=== PATIENT | male | born 1990 | race Caucasian/White ===

== ENCOUNTER 2022-01-13 10:51 | Inpatient (IN) | payer OTHER ==
[2022-01-13] MEDS ORDERED: SODIUM CHLORIDE 0.9% 1,000 ML with THIAMINE 100 MG, FOLIC ACID 1 MG IV ONE ×3 (11:27)
[2022-01-13] MEDS ORDERED: LORazepam 2 MG/ML INJ IV PRN ×4 (11:27)
[2022-01-13] MEDS ORDERED: THIAMINE 100 MG/ML 2 ML VIAL IM STA ×2 (11:27→16:06)
[2022-01-13 12:09] LABS: Basophils # (A) 0.1 k/uL (0-0.2); Basophils % (A) 2 %; Eosinophils # (A) 0.3 k/uL (0-0.7); Eosinophils % (A) 6 %; HCT 49.3 % (39.0-53.0); HGB 16.2 gm/dL (13.0-17.5); Lymphocytes # (A) 1.1 k/uL (1.0-4.8); Lymphocytes % (A) 23 %; MCHC 32.8 g/dL (31.0-37.0); MCV 94.5 fL (80.0-100.0); Mean Platelet Volume 10.7; Monocytes # (A) 0.4 k/uL (0-1.0); Monocytes % (A) 7 %; Neutrophils # (A) 2.8 k/uL (1.3-7.7); Neutrophils % (A) 58 %; RBC 5.22 m/uL (4.30-5.90); RDW 13.7 % (11.5-15.5); WBC 4.8 k/uL (3.8-10.6)
[2022-01-13 12:14] LABS: ALT 300 U/L (4-49); AST 404 U/L (17-59); African American GFR (CKD) >90 (>60 ml/min/1.73 sqM); Alkaline Phosphatase 121 U/L (38-126); Amylase 46 U/L (30-110); Anion Gap 19 mmol/L; Blood Urea Nitrogen 9 mg/dL (9-20); Carbon Dioxide 23 mmol/L (22-30); Chloride 102 mmol/L (98-107); Glucose 97 mg/dL (74-99); Lipase 194 U/L (23-300); Magnesium 1.8 mg/dL (1.6-2.3); Non-African American GFR(CKD) >90 (>60 ml/min/1.73 sqM); Phosphorus 4.2 mg/dL (2.5-4.5); Potassium 4.1 mmol/L (3.5-5.1); Sodium 144 mmol/L (137-145); Total Bilirubin 1.9 mg/dL (0.2-1.3); Total Protein 8.1 g/dL (6.3-8.2)
[2022-01-13 12:35] LABS: Alcohol 354 mg/dL
--- NOTE | 2022-01-13 12:40 | XR ---
EXAMINATION TYPE: XR chest 2V DATE OF EXAM: 01/13/2022 COMPARISON: NONE HISTORY: Chest pain. TECHNIQUE: Frontal and lateral views of the chest are obtained. FINDINGS: There is no focal air space opacity, pleural effusion, or pneumothorax seen. The cardiac silhouette size is within normal limits. Slight underlying scoliotic curvature. IMPRESSION: No acute process.
[2022-01-13 12:47] LABS: Platelet Count 87 k/uL (150-450)
--- NOTE | 2022-01-13 12:57 | ED ---
Alcohol HPI - General Chief Complaint: Alcohol Stated Complaint: ETOH withdrawals Time Seen by Provider: 01/13/22 11:26 Source: patient, RN notes reviewed Mode of arrival: ambulatory - History of Present Illness Initial Comments: This is a 31-year-old male who presents to the emergency department for alcohol intoxication and withdrawals. He planned on going to [place] for rehab today, however he was told that his alcohol level was too high and he had come to the emergency department. He has consumed about a half gallon of liquor daily for the last 9 years. He currently notes left sided chest pain, which has been present for the last year. He also notes intermittent hematemesis when he lays on his left side. After he goes through detox, he does still plan to go to [place]. He has never been to rehab before. Last alcoholic drink was this morning, unsure how much he consumed. MD Complaint: alcohol withdrawal, desires rehab Previous Visits for Alcohol Intoxication?: No Recent Trauma: No Chronic Alcohol Use: Yes - Related Data Allergies Allergy/AdvReac Type Severity Reaction Status Date / Time shellfish derived [Shellfish] Allergy Anaphylaxis Verified 01/13/22 11:14 Review of Systems ROS Statement: Those systems with pertinent positive or pertinent negative responses have been documented in the HPI. ROS Other: All systems not noted in ROS Statement are negative. Constitutional: Denies: fever, chills ENT: Denies: ear pain, throat pain Respiratory: Denies: cough, dyspnea Cardiovascular: Reports: chest pain. Denies: palpitations Gastrointestinal: Reports: abdominal pain, hematemesis. Denies: nausea, vo miting, diarrhea Genitourinary: Denies: urgency, dysuria Musculoskeletal: Denies: back pain Skin: Denies: rash Neurological: Denies: headache Past Medical History Past Medical History: No Reported History Additional Past Medical History / Comment(s): neuropathy, scoliosis. History of Any Multi-Drug Resistant Organisms: None Reported Additional Past Surgical History / Comment(s): spinal cord injury at 17. Past Psychological History: No Psychological Hx Reported Smoking Status: Current every day smoker Past Alcohol Use History: Abuse, Daily Past Drug Use History: None Reported General Exam Limitations: no limitations General appearance: alert, appears intoxicated Head exam: Present: atraumatic, normocephalic, normal inspection Respiratory exam: Present: normal lung sounds bilaterally. Absent: respiratory distress, wheezes, rales, rhonchi, stridor Cardiovascular Exam: Present: regular rate, normal rhythm, normal heart sounds. Absent: systolic murmur, diastolic murmur, rubs, gallop, clicks GI/Abdominal exam: Present: soft, normal bowel sounds. Absent: distended, tenderness, guarding, rebound, rigid Neurological exam: Present: alert Psychiatric exam: Present: normal affect, normal mood Skin exam: Present: warm, dry, intact, normal color. Absent: rash Course Vital Signs 01/13/22 01/13/22 11:09 13:26 Temperature 98 F Pulse Rate 104 H 85 Respiratory 18 18 Rate Blood Pressure 136/86 125/80 O2 Sat by Pulse 95 97 Oximetry Procedures - [place] Protocol (Time Out) Nurse: Shawna Guardado Medical Decision Making - Medical Decision Making This is a 31-year-old male who presents to the emergency department for alcohol intoxication. EtOH 354, patient will be sober at 1:30 AM tomorrow. Lactic acid elevated at 2.4. AST and ALTs elevated, with no previous values for comparison. Banana bag administered. Chest x-ray obtained given the patient's complaint of chest pain, no irregularities were identified. EKG also had no acute changes. Given his EtOH level, patient will be admitted. WA protocol in place. This case was discussed in detail with the attending ED physician. Presentation, findings, and treatment plan discussed in detail as well. - Lab Data Result diagrams: 01/13/22 11:32 01/13/22 11:32 Lab Results 01/13/22 01/13/22 01/13/22 Range/Units 11:32 11:32 11:43 WBC 4.8 (3.8-10.6) k/uL RBC 5.22 (4.30-5.90) m/uL Hgb 16.2 (13.0-17.5) gm/dL Hct 49.3 (39.0-53.0) % MCV 94.5 (80.0-100.0) fL MCH 31.0 (25.0-35.0) pg MCHC 32.8 (31.0-37.0) g/dL RDW 13.7 (11.5-15.5) % Plt Count 87 L (150-450) k/uL MPV 10.7 Neutrophils % 58 % Lymphocytes % 23 % Monocytes % 7 % Eosinophils % 6 % Basophils % 2 % Neutrophils # 2.8 (1.3-7.7) k/uL Lymphocytes # 1.1 (1.0-4.8) k/uL Monocytes # 0.4 (0-1.0) k/uL Eosinophils # 0.3 (0-0.7) k/uL Basophils # 0.1 (0-0.2) k/uL Sodium 144 (137-145) mmol/L Potassium 4.1 (3.5-5.1) mmol/L Chloride 102 (98-107) mmol/L Carbon Dioxide 23 (22-30) mmol/L Anion Gap 19 mmol/L BUN 9 (9-20) mg/dL Creatinine 0.70 (0.66-1.25) mg/dL Est GFR (CKD-EPI)AfAm >90 (>60 ml/min/1.73 sqM) Est GFR (CKD-EPI)NonAf >90 (>60 ml/min/1.73 sqM) Glucose 97 (74-99) mg/dL Plasma Lactic Acid Isacc 2.4 H* (0.7-2.0) mmol/L Calcium 9.0 (8.4-10.2) mg/dL Phosphorus 4.2 (2.5-4.5) mg/dL Magnesium 1.8 (1.6-2.3) mg/dL Total Bilirubin 1.9 H (0.2-1.3) mg/dL AST 404 H (17-59) U/L ALT 300 H (4-49) U/L Alkaline Phosphatase 121 (38-126) U/L Total Protein 8.1 (6.3-8.2) g/dL Albumin 5.0 (3.5-5.0) g/dL Amylase 46 (30-110) U/L Lipase 194 (23-300) U/L Serum Alcohol 354 H* mg/dL - EKG Data EKG Comments: Normal sinus rhythm. Ventricular rate 75 bpm, GA interval 157 ms, QRS duration 93 ms, QTC 419 ms. - Radiology Data Radiology results: report reviewed, image reviewed Disposition Clinical Impression: Alcoholic intoxication, Alcohol withdrawal syndrome Disposition: ADMITTED IP TO THIS [facility] Referrals: None,Stated [Primary Care Provider] - 1-2 days
[2022-01-13] MEDS ORDERED: KETOROLAC 15 MG/ML 1 ML VIAL IVP PRN (13:45)
[2022-01-13] MEDS ORDERED: ACETAMINOPHEN TAB 325 MG TAB PO PRN (13:45)
[2022-01-13] MEDS ORDERED: ONDANSETRON 4 MG/2 ML VIAL IVP PRN (13:45)
[2022-01-13] MEDS ORDERED: NALOXONE 0.4 MG/ML 1 ML VIAL IV PRN (13:45)
--- NOTE | 2022-01-13 16:05 | P.HPIM ---
History of Present Illness H&P Date: 01/13/22 Chief Complaint: alcohol intoxication 31-year-old male presents to emergency department with alcohol intoxication. He was planning on going to [place] for rehab today, however he was told that his alcohol level was too high and was directed to the emergency department s aid. He drinks about half a gallon of vodka daily for the last 9 years, his last drink was this morning. He is complaining of a headache, no hallucinations or tremors, he has had seizures in the past related to alcohol withdrawal. He has not exhibited any signs of withdrawal at the moment, but his alcohol level is still significantly elevated. He plans on going through alcohol withdrawal in the hospital and then to [place] for rehab. Review of Systems Constitutional: Reports chronic headaches, Reports malaise, Denies chills, Denies sweats Cardiovascular: Denies chest pain, Denies high blood pressure Respiratory: Denies cough, Denies hemoptysis, Denies pain, Denies wheezing Gastrointestinal: Reports abdominal pain, Reports nausea, Reports vomiting Musculoskeletal: Reports myalgias Neurological: Reports headaches, Reports numbness, Denies ataxia, Denies balance difficulties, Denies head injury, Denies lack of coordination, Denies syncope Psychiatric: Denies disorientation, Denies hallucinations, Denies paranoia, Denies suicidal ideation Past Medical History Past Medical History: No Reported History, Seizure Disorder Additional Past Medical History / Comment(s): neuropathy, scoliosis. History of Any Multi-Drug Resistant Organisms: None Reported Past Surgical History: Back Surgery Additional Past Surgical History / Comment(s): spinal cord injury at 17. Past Psychological History: No Psychological Hx Reported Smoking Status: Current every day smoker Past Alcohol Use History: Abuse, Daily Past Drug Use History: None Reported Medications and Allergies Home Medications Medication Instructions Recorded Confirmed Type Acamprosate Calcium [Campral] 666 mg PO DIRECTED 01/13/22 01/13/22 History Celecoxib [CeleBREX] 100 mg PO BID 01/13/22 01/13/22 History Folic Acid 1 mg PO DIRECTED 01/13/22 01/13/22 History Pregabalin [Lyrica] 150 mg PO TID 01/13/22 01/13/22 History Sertraline [Zoloft] 50 mg PO DAILY 01/13/22 01/13/22 History Thiamine [Vitamin B-1] 100 mg PO DIRECTED 01/13/22 01/13/22 History Allergies Allergy/AdvReac Type Severity Reaction Status Date / Time shellfish derived [Shellfish] Allergy Anaphylaxis Verified 01/13/22 14:02 Physical Exam Osteopathic Statement: *. No significant issues noted on an osteopathic structural exam other than those noted in the History and Physical/Consult. Vitals: Vital Signs Temp Pulse Resp BP Pulse Ox 01/13/22 15:08 109 H 22 121/72 96 01/13/22 13:26 85 18 125/80 97 01/13/22 11:09 98 F 104 H 18 136/86 95 Intake and Output 01/13/22 01/13/22 01/13/22 06:59 14:59 22:59 Other: Weight 82.1 kg - Constitutional General appearance: average body habitus, cooperative, no acute distress - EENT Eyes: EOMI, PERRLA - Neck Neck: normal ROM, no rigidity - Respiratory Respiratory: bilateral: CTA, negative: wheezing - Cardiovascular Rhythm: regular Heart sounds: normal: S1, S2 Abnormal Heart Sounds: no systolic murmur, no diastolic murmur - Gastrointestinal General gastrointestinal: decreased bowel sounds, no distended, no organomegaly, tenderness - Integumentary Integumentary: no cellulitis, no jaundiced, no pale, no rash - Neurologic Neurologic: CNII-XII intact - Musculoskeletal Musculoskeletal: strength equal bilaterally - Psychiatric Psychiatric: A&O x's 3, appropriate affect Results CBC & Chem 7: 01/13/22 11:32 01/13/22 11:32 Labs: Abnormal Lab Results - Last 24 Hours (Table) 01/13/22 01/13/22 01/13/22 Range/Units 11:32 11:32 11:43 Plt Count 87 L (150-450) k/uL Plasma Lactic Acid Isacc 2.4 H* (0.7-2.0) mmol/L Total Bilirubin 1.9 H (0.2-1.3) mg/dL AST 404 H (17-59) U/L ALT 300 H (4-49) U/L Serum Alcohol 354 H* mg/dL Assessment and Plan Plan: # Alcohol intoxication -With eminent withdrawal, possible delirium tremens -Patient consumes more than half a gallon of vodka daily, last drink this morning -Blood-alcohol level more than 300 today -No apparent signs of withdrawal at the moment -Ativan per CIWA scale -IV fluids, thiamine, folic acid -Seizure precautions -Patient plans on quitting alcohol and going to [place] for rehab after his hospitalization # Alcoholic hepatitis -Liver enzymes significant elevated -Secondary to chronic alcoholism -abd us # Thrombocytopenia -plt 87k -secondary to bone marrow suppression -no signs of bleeding -continue to monitor #Lactic Acidosis -most likely secondary to acute alcohol intoxication -IVF DVT prophylaxis Time with Patient: Less than 30
[2022-01-13 16:28] LABS: Appearance,Urine Clear (Clear); Bilirubin,Urine Negative (Negative); Blood,Urine Negative (Negative); Color,Urine Yellow; Glucose,Urine (UA) Negative (Negative); Ketones,Urine 1+ (Negative); Leukocyte Esterase,Urine Negative (Negative); Nitrite,Urine Negative (Negative); Protein,Urine Negative (Negative); Specific Gravity,Urine 1.009 (1.001-1.035)
[2022-01-13 16:38] LABS: Amphetamine Screen,Urine Not Detected (NotDetected); Barbiturate Screen,Urine Not Detected (NotDetected); Benzodiazepines Screen,Urine Not Detected (NotDetected); Cocaine Screen,Urine Not Detected (NotDetected); Methadone Screen, Urine Not Detected (NotDetected); Opiate Screen,Urine Not Detected (NotDetected); Oxycodone Screen, Urine Not Detected (NotDetected); Phencyclidine Screen,Urine Not Detected (NotDetected); Tricyclic Antidepressant,Urine Not Detected (NotDetected); Urn Cannabinoid Scrn Not Detected (NotDetected)
--- NOTE | 2022-01-13 16:49 | US ---
EXAMINATION TYPE: US abdomen limited DATE OF EXAM: 01/13/2022 COMPARISON: NONE CLINICAL HISTORY: hepatitis. Elevated LFT's EXAM MEASUREMENTS: Liver Length: 20.6 cm Gallbladder Wall: 0.2 cm CBD: 0.2 cm Right Kidney: 110.1 x 4.7 x 4.8 cm Pancreas: Obscured by bowel gas Liver: Enlarged, heterogeneous, difficult to penetrate Gallbladder: Distended without evidence of gallstones Evidence for sonographic Terrazas's sign: No CBD: wnl Right Kidney: wnl IMPRESSION: Gallbladder is large and measures 3.5 x 10 cm. No gallstones or dilated ducts. No focal liver defect. There is probably some fatty infiltration of the liver.
[2022-01-13] MEDS ORDERED: THIAMINE 100 MG TAB PO SCH (17:30)
[2022-01-13 20:54] VITALS: BP 129/77; PULSE 79; RESP 16; TEMP 98.3
[2022-01-13] MEDS ORDERED: NICOTINE 14MG/24HR PATCH TRANSDERM SCH (22:00)
[2022-01-14] MEDS ORDERED: PREGABALIN 75 MG CAP PO SCH (00:30)
[2022-01-14] MEDS ORDERED: PHENobarbitaL 16.2 MG TAB PO ONE ×2 (04:30→08:30)
--- NOTE | 2022-01-14 07:21 | P.DS ---
Providers Date of admission: 01/13/22 13:48 Expected date of discharge: 01/14/22 Attending physician: Monica Hartmann DO Primary care physician: Stated None Hospital Course: Discharge Diagnosis: Patient left AGAINST MEDICAL ADVICE. Acute alcohol intoxication Alcoholic hepatitis Pancytopenia Lactic acidosis Hospital Course: Patient is a 31-year-old male came in to the emergency department with alcohol intoxication. He was supposed to go to [place] rehab however his alcohol level was too high and therefore directed him to the emergency department. In the ER he was found to have significantly elevated liver enzymes with an AST of 404 and an ALT of 300. He was also found have an elevated plasma lactic acid at 2.4. He had thrombocytopenia with platelets of 87. He was admitted and started on CIWA protocol, IV fluids, thiamine, and folic acid. Patient was alert and oriented 3 with no active signs of withdrawal per nursing notes and subsequently left AGAINST MEDICAL ADVICE on 04/15 at 0043 I was never directly involved in the care of this patient. I am providing a summary of his hopsital stay as he left against medical advice. A total of 10 minutes of time were spent preparing this complex discharge summary . Plan - Discharge Summary Discharge Rx Participant: No New Discharge Prescriptions: No Action Folic Acid 1 mg PO DIRECTED Pregabalin [Lyrica] 150 mg PO TID Acamprosate Calcium [Campral] 666 mg PO DIRECTED Thiamine [Vitamin B-1] 100 mg PO DIRECTED Sertraline [Zoloft] 50 mg PO DAILY Celecoxib [CeleBREX] 100 mg PO BID Discharge Medication List Acamprosate Calcium [Campral] 666 mg PO DIRECTED 01/13/22 [History] Celecoxib [CeleBREX] 100 mg PO BID 01/13/22 [History] Folic Acid 1 mg PO DIRECTED 01/13/22 [History] Pregabalin [Lyrica] 150 mg PO TID 01/13/22 [History] Sertraline [Zoloft] 50 mg PO DAILY 01/13/22 [History] Thiamine [Vitamin B-1] 100 mg PO DIRECTED 01/13/22 [History] Follow up Appointment(s)/Referral(s): None,Stated [Primary Care Provider] - 1-2 days Discharge Disposition: Left Against Medical Advice
[2022-01-14] MEDS ORDERED: THIAMINE 100 MG TAB PO SCH (12:00)
== END 2022-01-14 01:43 | disposition left against medical advice (07) | DRG 894 ==
LOC: EC 10:51 → 6NMEDSUR 13:48 → 3SCARD 15:10 → OBSVTOIN 16:06 → 3SCARD 18:07 → UNDODISOB 01-14 01:43
PROVIDERS: ADMIT Internal Medicine; ATTEND Internal Medicine
PROC: HZ2ZZZZ Detoxification Services for Substance Abuse Treatment (ICD-10-PCS; principal; 2022-01-13)
DX: F10.229 Alcohol dependence with intoxication, unspecified (principal); D61.818 Other pancytopenia; E87.2 Acidosis; K92.0 Hematemesis; F10.231 Alcohol dependence with withdrawal delirium; G62.9 Polyneuropathy, unspecified; G40.909 Epilepsy, unspecified, not intractable, without status epilepticus; K70.10 Alcoholic hepatitis without ascites; F17.210 Nicotine dependence, cigarettes, uncomplicated; M41.9 Scoliosis, unspecified; Y90.8 Blood alcohol level of 240 mg/100 ml or more; Z53.29 Procedure and treatment not carried out because of patient's decision for other reasons; Z79.1 Long term (current) use of non-steroidal anti-inflammatories (NSAID); Z79.899 Other long term (current) drug therapy; Z91.013 Allergy to seafood; Z71.41 Alcohol abuse counseling and surveillance of alcoholic
CPT/HCPCS: 36415; 71046; 76705; 80053; 80306; 80320; 81003; 82075; 82150; 83605; 83690; 83735; 84100; 85025; 93005; 96372; 99285